=== PATIENT | male | born 1965 | race Caucasian/White ===

== ENCOUNTER 2017-07-29 20:55 | Emergency (ER) | payer BC ==
[~2017-07-29] VITALS: Ht 170.2 cm; Wt 89.9 kg
[~2017-07-29 20:55] MED LIST: ZOFRAN4 MG PO
[2017-07-29] MEDS ORDERED: BENADRYL50 MG PO (22:38)
[2017-07-29] MEDS ORDERED: PREDNISONE10 M1 PO (22:38)
[2017-07-29 22:51] VITALS: BP 136/84
== END 2017-07-29 22:52 | disposition home or self-care (01) ==
LOC: EME 20:55
DX: L30.9 Dermatitis, unspecified (principal)
CPT/HCPCS: 99281; 99283; J2930